=== PATIENT | male | born 1960 | race Caucasian/White ===

== ENCOUNTER 2016-12-15 13:35 | Emergency (ER) | payer OTHER ==
[~2016-12-15] VITALS: Ht 177.8 cm; Wt 90.7 kg
[2016-12-15] MEDS ORDERED: ATORVASTATIN CA20 M1 PO (14:54)
[2016-12-15] MEDS ORDERED: GABAPENTIN300 M2 PO (14:54)
[2016-12-15] MEDS ORDERED: LISINOPRIL5 M1 PO (14:54)
[2016-12-15 15:28] LABS: ABSOLUTE BASOPHIL COUNT 0 /CUMM (0.0-0.2); ABSOLUTE EOSINOPHIL COUNT 0.2 /CUMM (0.0-0.7); ABSOLUTE GRANULOCYTE CT 3.9 /CUMM (1.4-6.5); ABSOLUTE LYMPH COUNT 2.8 /CUMM (1.2-3.4); ABSOLUTE MONOCYTE COUNT 0.6 /CUMM (0.10-0.60); BASOPHIL % 0.3 % (0.0-2.0); EOSINOPHIL % 2.6 % (0-5); GRANULOCYTE % 52.1 % (42.2-75.2); MEAN CORPUSCULAR HGB 31.9 PG (27.0-31.0); MEAN CORPUSCULAR HGB CONC 33.3 G/DL (33.0-37.0); MEAN CORPUSCULAR VOLUME 95.9 FL (80.0-94.0); MEAN PLATELET VOLUME 7.5 FL (7.4-10.4); PLATELET COUNT 211 /CUMM (130-400); RBC DISTRIBUTION WIDTH 13.1 % (11.5-14.5); RED BLOOD CELL CT 4.69 /CUMM (4.70-6.10); WHITE BLOOD CELL COUNT 7.5 /CUMM (4.8-10.8)
--- NOTE | 2016-12-15 15:38 | CT SCAN REPORT ---
EXAMINATION: CT HEAD WITHOUT CONTRAST CLINICAL INFORMATION: Dizziness headache COMPARISON: None TECHNIQUE: Contiguous axial imaging was performed from the skull base to vertex without intravenous administration of contrast. DLP: 615 mGy-cm FINDINGS: There is no evidence of acute intracranial hemorrhage or territorial infarction. No abnormal mass effect or midline shift is seen. Bird to white matter differentiation is well preserved. No extra-axial fluid collections are identified. The ventricles are normal in size. There is no abnormal attenuation within the brain parenchyma. The osseous structures and soft tissues are normal. The mastoid air cells and visualized portions of the paranasal sinuses are well aerated. IMPRESSION: No acute intracranial pathology.
--- NOTE | 2016-12-15 16:03 | ED AMS/SEIZURE/WEAK/DIZZY ---
History of Present Illness General Chief Complaint: Dizziness Stated Complaint: DIZZINESS, OCCASIONAL NUMBNESS IN LEGS AND ARMS Source: patient, family, old records Exam Limitations: no limitations Vital Signs & Intake/Output Vital Signs & Intake/Output Vital Signs Date Time Temp Pulse Resp B/P B/P Pulse O2 O2 Flow FiO2 Mean Ox Delivery Rate 12/15 1645 97.0 78 18 113/55 96 Room Air 12/15 1500 98 Room Air 12/15 1339 96.6 80 18 143/85 99 Room Air Allergies Coded Allergies: No Known Allergies (12/15/16) Reconcile Medications Atorvastatin Calcium 20 MG TABLET 1 TAB PO DAILY HEART (Reported) Gabapentin 300 MG CAPSULE 1 CAP PO TID ANXIETY (Reported) Lisinopril 5 MG TABLET 1 TAB PO DAILY HEART (Reported) Triage Note: 56 YO MALE TO ER. STATES HE GOT BACK FROM [facility] ABOUT 1 WEEK AGO AND SINCE THEN HE HASNT BEEN FELING RIGHT. STATES +DIZZINESS, SLIGHT NAUSEOUS. STATES NO APPETITE. DENIES CHEST PAIN/SOB. Triage Nurses Notes Reviewed? yes Onset: Last week Duration: day(s):, constant, continues in ED, getting worse Timing: recent history Injury Environment: home Severity: moderate Modifying Factors: Worsens With: movement. HPI: One week prior to admission patient returned from [facility]. Reports not feeling well since then. Several hours prior to admission complains of feeling dizzy worse with head movement associated with nausea tingling in hands and feet. He denies fever chills vomiting diarrhea chest pain shortness breath cough congestion abdominal pain headache dysuria rash bleeding. Past History Travel History Traveled to [place] past 21 day No Medical History Any Pertinent Medical History? 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 No Review of Systems Review of Systems Constitutional: Reports: see HPI, malaise, weakness. EENTM: Reports: no symptoms. Respiratory: Reports: no symptoms. Cardiovascular: Reports: no symptoms. GI: Reports: no symptoms. Genitourinary: Reports: no symptoms. Musculoskeletal: Reports: no symptoms. Skin: Reports: no symptoms. Neurological/Psychological: Reports: see HPI. Hematologic/Endocrine: Reports: no symptoms. Immunologic/Allergic: Reports: no symptoms. All Other Systems: Reviewed and Negative Physical Exam Physical Exam General Appearance: well developed/nourished, alert, awake, anxious, moderate distress, thin Head: atraumatic, normal appearance Eyes: Bilateral: normal appearance, PERRL, EOMI, other (nystagmus). Ears, Nose, Throat: normal pharynx, normal ENT inspection, moist mucus membranes Neck: normal inspection, supple, full range of motion, no midline tenderness Respiratory: normal breath sounds, chest non-tender, no respiratory distress, quiet respiration, lungs clear Cardiovascular: regular rate/rhythm, normal peripheral pulses, norml femoral pulses equa Peripheral Pulses: 4+ carotid (R), 4+ carotid (L) Gastrointestinal: normal bowel sounds, soft, non-tender, no organomegaly Back: normal inspection, normal range of motion Extremities: normal range of motion, no ligament instability Neurologic/Psych: no motor/sensory deficits, awake, alert, oriented x 3, normal gait, normal mood/affect, binding printer II-XII nml as tested Reflexes: 2+: bicep (R), bicep (L). Skin: intact, normal color, warm/dry Lymphatic: no anterior cervical danny Core Measures ACS in differential dx? Yes ASA ordered for poss ACS? No-ACS ruled out CVA/TIA Diagnosis: No Severe Sepsis Present: No Septic Shock Present: No Progress Differential Diagnosis: benign positional vertigo, CVA/stroke, drug intoxication , electrolyte imbalance, hypoxia Plan of Care: Orders Procedure Date/time Status TROPONIN LEVEL 12/15 1504 Complete COMPREHENSIVE METABOLIC PANEL 12/15 1504 Complete CBC WITHOUT DIFFERENTIAL 12/15 1504 Complete EKG 12/15 1341 Active Laboratory Tests 12/15/16 1520: Anion Gap 11, Estimated GFR > 60, BUN/Creatinine Ratio 16.3, Glucose 87, Calcium 9.1, Total Bilirubin 1.4 H, AST 25, ALT 45, Alkaline Phosphatase 79, Troponin I < 0.01, Total Protein 6.6, Albumin 4.0, Globulin 2.6, Albumin/Globulin Ratio 1.5 , CBC w Diff NO MAN DIFF REQ, RBC 4.69 L, MCV 95.9 H, MCH 31.9 H, RDW 13.1, MPV 7.5, Gran % 52.1, Lymphocytes % 37.2, Monocytes % 7.8, Eosinophils % 2.6, Basophils % 0.3, Absolute Granulocytes 3.9, Absolute Lymphocytes 2.8, Absolute Monocytes 0.6, Absolute Eosinophils 0.2, Absolute Basophils 0, PUBS MCHC 33.3 Diagnostic Imaging: Viewed by Me: CT Scan. Discussed w/RAD: CT Scan. Radiology Impression: no acute abnormality Initial ED EKG: normal axis, normal intervals, normal p-waves, normal QRS complex, normal sinus rhythm, no ST T wave changes Rhythm Strip: normal sinus rhythm Departure Departure Time of Disposition: 1701 Disposition: HOME OR SELF CARE Condition: Stable Clinical Impression Primary Impression: Vertigo Referrals: JODI DUKES MD (PCP/Family) Departure Forms: Customer Survey General Discharge Information Prescriptions: Current Visit Scripts Scopolamine Hydrobromide (Transderm-Scop) 1 PAT TOP Q3D PRN dizziness #4 PAT apply to the hairless area behind 1 ear Meclizine HCl 1 TAB PO TIDPRN PRN dizziness #30 TAB Ondansetron (Zofran Odt) 1 TAB SL TID PRN nausea #10 TAB
[2016-12-15] MEDS ORDERED: TRANSDERM-SCOP1 EACH TOP (17:04)
[2016-12-15] MEDS ORDERED: ZOFRAN ODT4 M1 SL (17:04)
[2016-12-15] MEDS ORDERED: MECLIZINE HCL25 MG PO (17:04)
== END 2016-12-15 17:13 ==
LOC: ERH 13:35
PROVIDERS: Emergency Medicine
DX: R42 Dizziness and giddiness (principal)
CPT/HCPCS: 93005; 93010; 96360; 96361